=== PATIENT | male | born 1995 | race Caucasian/White ===

== ENCOUNTER 2018-08-11 13:50 | Emergency (ER) | payer OTHER ==
[~2018-08-11] VITALS: Ht 175.3 cm; Wt 104.8 kg
[2018-08-11 13:56] VITALS: BP 136/80; TEMP 98.2
[2018-08-11] MEDS ORDERED: DOXYCYCLINE 10100 MG PO (16:35)
[2018-08-11] MEDS ORDERED: NORCO 325 MG-51 TAB PO (16:40)
[2018-08-11 16:52] VITALS: PULSE 88
== END 2018-08-11 16:53 | disposition home or self-care (01) ==
LOC: COL.ER 13:50
DX: L05.01 Pilonidal cyst with abscess (principal)